=== PATIENT | female | born 1940 | race Caucasian/White ===

== ENCOUNTER 2021-04-09 19:12 | Inpatient (IN) | payer MEDICARE, OTHER ==
[~2021-04-09] VITALS: Ht 172.7 cm; Wt 70.3 kg
--- NOTE | 2021-04-09 19:30 | NUR ---
[facility] AT BEDSIDE. BLOOD DRAWN AND SENT TO LAB
--- NOTE | 2021-04-09 19:33 | NUR ---
KENNEDY FROM [facility], SENT BY PMD FOR PSYCH EVAL DUE TO BEING UNCOOPERATIVE WITH STAFF. PT CHANGED INTO A GOWN AND PLACED ON MONITOR AND ALL V/S STABLE. SAFETY MEASURES IN PLACE.
--- NOTE | 2021-04-09 20:03 | NUR ---
urine collected and sent to lab
[2021-04-09] MEDS ORDERED: LEVO25TA9 PO (20:24)
[2021-04-09] MEDS ORDERED: DORZ10DR13 EACHEYE (20:24)
[2021-04-09] MEDS ORDERED: INSU100V7 SQ (20:24)
[2021-04-09] MEDS ORDERED: MELA3TAB41 PO (20:24)
[2021-04-09] MEDS ORDERED: LATA2.5D2 EACHEYE (20:24)
[2021-04-09] MEDS ORDERED: QUET25TA PO ×2 (20:24)
[2021-04-09] MEDS ORDERED: DEXT15DR6 EACHEYE (20:24)
[2021-04-09 20:30] LABS: BASOPHILS # (AUTO) 0.1 K/uL (0.0-0.2); CALCIUM, SERUM 9.2 mg/dL (8.5-10.1); CARBON DIOXIDE 27 mmol/L (21-32); CHLORIDE 102 mmol/L (98-107); CREATININE 0.8 mg/dL (0.6-1.3); EOSINOPHILS % (AUTO) 2.5 % (0.0-6.0); GLUCOSE 237 mg/dL (74-106); HEMATOCRIT 38 % (33-45); HEMOGLOBIN 12.6 g/dL (11.5-14.8); LYMPHOCYTES # (AUTO) 1.7 K/uL (0.8-4.8); LYMPHOCYTES % (AUTO) 27.8 % (20.0-44.0); MEAN CORPUSCULAR HGB CONC 33 g/dl (31.0-36.0); MEAN CORPUSCULAR VOLUME 93 fL (82-100); MONOCYTES # (AUTO) 0.5 K/uL (0.1-1.30); NEUTROPHILS # (AUTO) 3.7 K/uL (1.8-8.9); NEUTROPHILS % (AUTO) 60.7 % (43.0-81.0); PLATELET COUNT (AUTO) 189 K/uL (150-450); POTASSIUM 3.9 mmol/L (3.5-5.1); RED BLOOD CELL COUNT(AUTO) 4.08 MIL/uL (4.0-5.2); SODIUM SERUM 136 mmol/L (136-145); UREA NITROGEN, BLOOD 29 mg/dL (7-18); WHITE BLOOD COUNT (AUTO) 6.1 K/uL (4.3-11.0)
--- NOTE | 2021-04-09 20:30 | NUR ---
COVID ANTIGEN SWAB DONE
[2021-04-09 20:31] LABS: BILIRUBIN,URINE NEGATIVE (NEGATIVE); COLOR,URINE YELLOW (YELLOW); LEUKOCYTE ESTERASE ,URINE SMALL (NEGATIVE); NITRITE, URINE POSITIVE (NEGATIVE); PROTEIN,URINE NEGATIVE (NEGATIVE); UGLUCOSE NEGATIVE (NEGATIVE); UROBILINOGEN,URINE 0.2 EU/dL (0.2)
[2021-04-09 20:36] LABS: BACTERIA,URINE 2+ /HPF (None Seen); RBC,URINE 0-2 /HPF (0-2)
[2021-04-09] MEDS ORDERED: CEFTRIAXONE 1GM BAG (ER ONLY) 1 GM/50 ML PIGGYBACK IV ONE (21:00)
[2021-04-09] MEDS ORDERED: CEPHALEXIN MONOHYDRATE 500 MG CAPSULE PO ONE ×2 (21:21→21:30)
[2021-04-09 21:29] LABS: ALANINE AMINOTRANSFERASE 24 U/L (12-78); ALBUMIN 3.2 g/dL (3.4-5.0); ALKALINE PHOSPHATASE 115 U/L (46-116); ASPARTATE AMINOTRANSFERASE 27 U/L (15-37); BILIRUBIN,TOTAL 0.2 mg/dL (0.2-1.0); TOTAL PROTEIN, SERUM 6.3 g/dL (6.4-8.2)
--- NOTE | 2021-04-09 21:29 | NUR ---
PT REFUSED TO TAKE THE KEFLEX CAPS. DR. PAEZ MADE AWARE
[2021-04-09 21:48] LABS: ACETAMINOPHEN < 0 ug/ml (10-30)
[2021-04-09 21:53] LABS: ALCOHOL, BLOOD < 3 mg/dL (0-0)
[2021-04-09] MEDS ORDERED: LORAZEPAM INJ 2 MG/ML VIAL ONE (22:59)
[2021-04-09] MEDS ORDERED: LORAZEPAM INJ 2 MG/ML VIAL IV ONE (23:00)
--- NOTE | 2021-04-09 23:11 | NUR ---
CALLED [facility] FOR PSYCH EVAL
--- NOTE | 2021-04-10 | NUR ---
MRSA SWAB COLLECTED AND SENT TO LAB. PATIENT'S BELONGINGS LIST DONE.
--- NOTE | 2021-04-10 00:04 | NUR ---
HERIBERTO BULLOCK AT BED SIDE TO EVALUATE THE PT
--- NOTE | 2021-04-10 00:04 | NUR ---
RM 219-B
[2021-04-10] MEDS ORDERED: QUETIAPINE FUMARATE 25 MG TABLET PO ONE (00:30)
[2021-04-10] MEDS ORDERED: QUETIAPINE FUMARATE 25 MG TABLET PO SCH (00:30)
[2021-04-10] MEDS ORDERED: QUETIAPINE FUMARATE 25 MG TABLET ONE (00:59)
[2021-04-10] MEDS ORDERED: DEXTROSE 50%-WATER 50 ML DISP.SYRIN IV PRN (01:00)
--- NOTE | 2021-04-10 01:12 | NUR ---
REPORT GIVEN TO GRETA LOZANO
--- NOTE | 2021-04-10 01:15 | NUR ---
PATIENT BEING TRANSFERRED TO [facility]
[2021-04-10] MEDS ORDERED: MAG HYDROX/AL HYDROX/SIMETH 30 ML UDC PO PRN (01:30)
[2021-04-10] MEDS ORDERED: BLOOD SUGAR DIAGNOSTIC 1 EACH STRIP IN ONE (01:30)
[2021-04-10] MEDS ORDERED: MAGNESIUM HYDROXIDE 30 ML UDC PO PRN ×2 (01:30→11:30)
--- NOTE | 2021-04-10 02:48 | NUR ---
RN GPS ADMISSION NOTE: RECEIVED PATIENT FROM THE ER. ARRIVAL TIME 0130. PATIENT ADMITTED ON A 5150 HOLD FOR DANGER TO OTHERS, GRAVELY DISABLED PER HOLD, PATIENT IS CONFUSED, FORGETTING WHERE SHE IS, BECOMING AGGRESSIVE TOWARDS STAFF AND NOT FOLLOWING DIRECTIONS. UNABLE TO CARE FOR OWN CLOTHING AND FEEDING. PATIENT CAME [facility]. ON ARRIVAL TO THE UNIT, PATIENT SEEMS CONFUSED AND SPEAKS ONLY OCCITAN, WHICH A RUBBER TUBING SPLICER WAS USED. PATIENT PATIENT'S RESPIRATIONS APPEARED EVEN AND UNLABORED WITH NO SOB NOTED. PATIENT SEEMS TO BE ALERT ORIENTED X1-2. PATIENT CURRENTLY DENIES ANY SUICIDAL IDEATION AND HOMICIDAL IDEATION AT THIS TIME. PATIENT ADVISED OF HOLD AND PATIENT'S RIGHT BOOKLET WAS GIVEN. PATIENTS BELONGINGS CHECKED FOR CONTRABAND, WHICH PATIENT HAS NONE. SKIN ASSESSMENT COMPLETED, SHOWING SCABS ON CHEST, BACK AND LEGS, WHICH PHOTOS WERE TAKEN OF. PATIENT SEEMS TO BE AMBULATORY SINCE SHE WAS JUST SEEN GETTING OUT OF THE GURNEY THEN USING THE RESTROOM. PATIENT REFUSED TO SIGN ANY PAPER WORK. BUT ALLOWED STAFF TO DO VITAL SIGNS CHECKS, BLOOD SUGAR (WHICH WAS 248) AND FACE OF PHOTO WELL SKIN ASSESSMENT. PATIENT IS SELECTIVELY MUTE, SHOWING NON-VERBAL BEHAVIOR. RECORDS ONLY SHOW SHE HAS A HISTORY OF DEMENTIA, HYPOTHYROIDISM, METABOLIC ENCEPHALOPATHY. IT WAS NOTED THAT PATIENT ALSO HAS A FORM OF HYPERTENSION AND DIABETES. IT IS ALSO UNKNOWN IF SHE TOOK THE COVID, FLU, OR PNA VACCINE. MSRA SWAB DONE. AFTERWARDS, PATIENT EDUCATED FILM TECHNICIAN LIGHT. SIDE RAILS UP X2 FOR SAFETY. BED LOCKED, LOW, WILL CONTINUE TO MONITOR Q15 MINUTES FOR SAFETY.
[2021-04-10] MEDS: LEVOTHYROXINE SODIUM 25 MCG TABLET PO SCH ×2 (07:00→08:25)
[2021-04-10] MEDS ORDERED: BISA10SU11 RC (07:27)
[2021-04-10] MEDS ORDERED: INSU100V30 SQ (07:27)
[2021-04-10] MEDS ORDERED: NA P133E RC (07:27)
[2021-04-10] MEDS ORDERED: MAGN400O6 PO (07:27)
[2021-04-10] MEDS ORDERED: ACET-868 PO (07:27)
[2021-04-10] MEDS ORDERED: POLY15DR40 EACHEYE (07:27)
[2021-04-10] MEDS ORDERED: SENN-261 PO (07:27)
[2021-04-10 08:00] VITALS: BP 158/82
[2021-04-10] MEDS: INSULIN REGULAR, HUMAN 100 UNIT/ML 3 ML VIAL SQ PRN ×2 (08:01→11:28)
--- NOTE | 2021-04-10 08:05 | NUR ---
PATIENT'S BLOOD SUGAR 251. PT REFUSES INSULIN. WILL CONTINUE TO MONITOR.
[2021-04-10] MEDS: CLONIDINE HCL 0.1 MG TABLET PO PRN ×2 (08:07→08:26)
[2021-04-10] MEDS: BLOOD SUGAR DIAGNOSTIC 1 EACH STRIP VI SCH ×4 (08:08→22:07)
[2021-04-10] MEDS: POLYVINYL ALCOHOL 15 ML BOTTLE OP SCH ×3 (09:00→16:50)
[2021-04-10] MEDS: LATANOPROST EYE DROP 0.005% 2.5 ML BOTTLE EACHEYE SCH (09:00)
[2021-04-10] MEDS: risperiDONE 0.25 MG TABLET PO SCH ×2 (10:46→16:49)
--- NOTE | 2021-04-10 10:49 | NUR ---
SHON Initial Discharge Plan: Pt currently resides at [facility] located at [id number] [place] [id number]; ([phone]). SHON contacted Courtney ([phone]) technical illustrator and he stated he will let this director underwriter sales know if pt is welcomed back. SHON will work with the MD, treatment team, and family to help coordinate appropriate discharge.
--- NOTE | 2021-04-10 10:49 | NUR ---
SHON Admit Source: Pt was placed on a 5150 hold for GD and danger to others. Pt was brought from [facility]. Pt currently resides at [facility] located at [address] [place] [id number]; ([phone]). SHON contacted Juan ([phone]) extras casting director and he stated he will let this technical document writer know if pt is welcomed back.
--- NOTE | 2021-04-10 10:54 | NUR ---
SHON Family Contact: SW contacted patient's daughter Nhung ([phone]) and notified of pt's admission. SW discussed treatment plan and discharge plan. Daughter wants pt to return back to [facility] SNF upon dc.
[2021-04-10] MEDS ORDERED: SENNOSIDES 8.6 MG TABLET PO PRN (11:30)
[2021-04-10] MEDS ORDERED: BISACODYL SUPP (10 MG) 10 MG/SUPP.RECT SUPP.RECT RC PRN (11:30)
[2021-04-10] MEDS ORDERED: NA PHOS,M-B/NA PHOS,DI-BA 1 EA ENEMA RC PRN (11:30)
[2021-04-10] MEDS: DIVALPROEX SODIUM 125 MG CAP.SPRINK PO SCH ×2 (12:23→16:49)
[2021-04-10] MEDS ORDERED: POLYVINYL ALCOHOL 15 ML BOTTLE OP SCH (13:00)
[2021-04-10 16:00] VITALS: BP 153/91
[2021-04-10] MEDS: LORAZEPAM 0.5 MG TABLET PO PRN (19:43)
--- NOTE | 2021-04-10 20:27 | NUR ---
GPS RN NOTES PRN ATIVAN GIVEN FOR ANXIETY PT TOLERATED WELL. WILL CONTINUE TO MONITOR.
[2021-04-10] MEDS: ACETAMINOPHEN 325 MG TABLET PO PRN (21:52)
[2021-04-10] MEDS: TEMAZEPAM 7.5 MG CAPSULE PO PRN (21:53)
[2021-04-10] MEDS: NITROFURANTOIN/MONOHYDRATE MACROCRYSTALS 100 MG CAPSULE PO SCH (21:53)
[2021-04-10] MEDS: TIMOLOL MAL/DORZOLAM HCL OPHTH 10 ML BOTTLE EACHEYE SCH (22:00)
[2021-04-10] MEDS: *INSULIN REGULAR(HUMULIN R)HUM 100 UNIT/ML VIAL SQ PRN (22:06)
--- NOTE | 2021-04-10 22:07 | NUR ---
GPS RN NOTES PT GIVEN RESTORIL FOR INSOMIA AND TYLENOL DUE TO PT REPORT OF MILD PAIN TOLERATED WELL. WILL CONTINUE TO MONITOR.
[2021-04-10] MEDS: INSULIN GLARGINE, 100 UNIT/ML CARTRIDGE SQ SCH (22:23)
--- NOTE | 2021-04-10 22:24 | NUR ---
GPS RN NOTES LANTUS GIVEN SNACKS AND JUICE PROVIDED PT REQUESTED TOLERATED WELL. PT APPEARS LESS ANXIOUS AT THIS TIME.
[2021-04-11] MEDS: BLOOD SUGAR DIAGNOSTIC 1 EACH STRIP VI SCH ×4 (07:45→21:28)
[2021-04-11] MEDS: INSULIN REGULAR, HUMAN 100 UNIT/ML 3 ML VIAL SQ PRN ×2 (07:47→11:46)
[2021-04-11 08:00] VITALS: BP 139/86
--- NOTE | 2021-04-11 08:37 | NUR ---
SNF Contact: SW spoke with Juan benz from [facility] ([phone]) who stated pt is welcomed back upon dc.
--- NOTE | 2021-04-11 08:52 | NUR ---
WOUND CARE CONSULT: PT PRESENTS WITH SOME SCARRING AND DRY SCABS, PRESENT ON ADMISSION. NO DRAINAGE, ERYTHEMA NOTED. PT WAS EXAMINED BY HOSPITALIST. WILL SEE PRN. PT IS AMBULATORY.
[2021-04-11] MEDS: DIVALPROEX SODIUM 125 MG CAP.SPRINK PO SCH ×3 (09:07→17:23)
[2021-04-11] MEDS: AMLODIPINE BESYLATE 2.5 MG TABLET PO SCH (09:07)
[2021-04-11] MEDS: risperiDONE 0.25 MG TABLET PO SCH ×2 (09:07→17:23)
[2021-04-11] MEDS: NITROFURANTOIN/MONOHYDRATE MACROCRYSTALS 100 MG CAPSULE PO SCH ×2 (09:07→21:17)
[2021-04-11] MEDS: LATANOPROST EYE DROP 0.005% 2.5 ML BOTTLE EACHEYE SCH (09:28)
[2021-04-11] MEDS: POLYVINYL ALCOHOL 15 ML BOTTLE OP SCH ×3 (09:28→17:49)
[2021-04-11 09:57] LABS: CHOLESTEROL 198 mg/dL (<200); HDL CHOLESTEROL 61 mg/dL (40-60); LDL 113 mg/dL (0-99); TRIGLYCERIDES 81 mg/dL (30-150)
[2021-04-11 10:10] LABS: ALBUMIN 2.9 g/dL (3.4-5.0); BILIRUBIN,TOTAL 0.5 mg/dL (0.2-1.0); CREATININE 0.9 mg/dL (0.6-1.3); POTASSIUM 3.8 mmol/L (3.5-5.1); TOTAL PROTEIN, SERUM 6.2 g/dL (6.4-8.2)
[2021-04-11] MEDS: HYDROCORTISONE 1% CREAM 28.35 GM TUBE TP SCH ×2 (10:43→17:49)
[2021-04-11 16:00] VITALS: BP 135/66
[2021-04-11 20:00] VITALS: BP 138/70
[2021-04-11] MEDS: TIMOLOL MAL/DORZOLAM HCL OPHTH 10 ML BOTTLE EACHEYE SCH ×2 (21:19→21:55)
[2021-04-11] MEDS: INSULIN GLARGINE, 100 UNIT/ML CARTRIDGE SQ SCH ×2 (21:27→21:46)
[2021-04-11] MEDS: *INSULIN REGULAR(HUMULIN R)HUM 100 UNIT/ML VIAL SQ PRN (21:28)
--- NOTE | 2021-04-11 21:55 | NUR ---
GPS RN NOTES PT REFUSED HER EYE DROPS AND INSULIN. EXPLAINED TO PT IMPORTANCE OF MEDICATIONS IN HER POC BUT PT STILL REFUSED. WILL CONTINUE TO MONITOR.
[2021-04-11] MEDS: TEMAZEPAM 7.5 MG CAPSULE PO PRN (22:01)
[2021-04-12] MEDS: BLOOD SUGAR DIAGNOSTIC 1 EACH STRIP VI SCH ×4 (07:44→21:53)
[2021-04-12 08:00] VITALS: BP 157/68
[2021-04-12] MEDS: LEVOTHYROXINE SODIUM 75 MCG TABLET PO SCH (08:25)
[2021-04-12] MEDS: NITROFURANTOIN/MONOHYDRATE MACROCRYSTALS 100 MG CAPSULE PO SCH ×2 (08:28→20:31)
[2021-04-12] MEDS: DIVALPROEX SODIUM 125 MG CAP.SPRINK PO SCH ×3 (08:28→16:30)
[2021-04-12] MEDS: risperiDONE 0.25 MG TABLET PO SCH ×2 (08:28→16:30)
[2021-04-12] MEDS: AMLODIPINE BESYLATE 2.5 MG TABLET PO SCH (08:29)
[2021-04-12] MEDS: HYDROCORTISONE 1% CREAM 28.35 GM TUBE TP SCH ×2 (08:30→16:32)
[2021-04-12] MEDS: INSULIN REGULAR, HUMAN 100 UNIT/ML 3 ML VIAL SQ PRN ×3 (08:38→17:07)
[2021-04-12] MEDS: LATANOPROST EYE DROP 0.005% 2.5 ML BOTTLE EACHEYE SCH (09:17)
[2021-04-12] MEDS: POLYVINYL ALCOHOL 15 ML BOTTLE OP SCH ×3 (09:18→16:32)
[2021-04-12 16:00] VITALS: BP 151/80
[2021-04-12 19:54] VITALS: BP 145/75
[2021-04-12 20:00] VITALS: BP 145/75
[2021-04-12] MEDS: TIMOLOL MAL/DORZOLAM HCL OPHTH 10 ML BOTTLE EACHEYE SCH (21:15)
[2021-04-12] MEDS: *INSULIN REGULAR(HUMULIN R)HUM 100 UNIT/ML VIAL SQ PRN (21:54)
[2021-04-12] MEDS: INSULIN GLARGINE, 100 UNIT/ML CARTRIDGE SQ SCH (22:00)
[2021-04-12] MEDS: TEMAZEPAM 7.5 MG CAPSULE PO PRN (22:02)
--- NOTE | 2021-04-12 22:04 | NUR ---
GPS RN NOTE PATIENT'S GLUCOSE LEVEL IS 198 MG/DL, 3 UNITS SSI ADMINISTERED. PATIENT IS EATING SNACK AT THIS TIME. WILL CONTINUE TO MONITOR FOR ANY CHANGE OF CONDITION.
--- NOTE | 2021-04-12 22:04 | NUR ---
GPS RN NOTE: INSOMNIA PATIENT IS UNABLE TO SLEEP, ANXIOUS, RESTLESS AT THIS TIME. PRN RESTORIL 7.5 MG 1 CAP PO ADMINISTERED. WILL CONTINUE TO MONITOR.
--- NOTE | 2021-04-12 22:11 | NUR ---
GPS RN NOTE: MEDICATION REFUSAL PATIENT REFUSED TO GET LANTUS INSULIN ORDERED X 3, DESPITE OF RISKS AND BENEFITS EXPLANATIONS, PATIENT CONTINUED TO REFUSE.
[2021-04-13] MEDS: LORAZEPAM 0.5 MG TABLET PO PRN (00:52)
--- NOTE | 2021-04-13 00:55 | NUR ---
GPS RN NOTE: ANXIETY/AGITATION PATIENT IS ANXIOUS, RESTLESS, GETTING AGITATED WHEN REDIRECTED, UNABLE TO REDIRECT AT THIS TIME. PRN ATIVAN 0.5 MG 1 TAB PO ADMINISTERED. WILL CONTINUE TO MONITOR.
[2021-04-13] MEDS: ACETAMINOPHEN 325 MG TABLET PO PRN ×2 (05:20→22:13)
--- NOTE | 2021-04-13 05:23 | NUR ---
GPS RN NOTE: HEADACHE PATIENT C/O HEADACHE BUT UNABLE TO SCALE DUE TO CONFUSION. PRN TYLENOL 650 MG PO ADMINISTERED. WILL CONTINUE TO MONITOR.
[2021-04-13] MEDS: LEVOTHYROXINE SODIUM 75 MCG TABLET PO SCH (07:03)
[2021-04-13] MEDS: BLOOD SUGAR DIAGNOSTIC 1 EACH STRIP VI SCH ×4 (07:49→21:15)
[2021-04-13 08:00] VITALS: BP 153/69
[2021-04-13] MEDS: INSULIN REGULAR, HUMAN 100 UNIT/ML 3 ML VIAL SQ PRN ×3 (08:15→17:23)
[2021-04-13] MEDS: risperiDONE 0.25 MG TABLET PO SCH ×2 (08:16→16:36)
[2021-04-13] MEDS: AMLODIPINE BESYLATE 2.5 MG TABLET PO SCH (08:16)
[2021-04-13] MEDS: DIVALPROEX SODIUM 125 MG CAP.SPRINK PO SCH ×3 (08:16→16:36)
[2021-04-13] MEDS: NITROFURANTOIN/MONOHYDRATE MACROCRYSTALS 100 MG CAPSULE PO SCH ×2 (08:16→21:09)
[2021-04-13] MEDS: HYDROCORTISONE 1% CREAM 28.35 GM TUBE TP SCH ×2 (08:16→16:39)
[2021-04-13] MEDS: LATANOPROST EYE DROP 0.005% 2.5 ML BOTTLE EACHEYE SCH (08:17)
[2021-04-13] MEDS: POLYVINYL ALCOHOL 15 ML BOTTLE OP SCH ×3 (08:17→16:39)
[2021-04-13 16:00] VITALS: BP 120/72
[2021-04-13 19:58] VITALS: BP 162/81
[2021-04-13 20:08] VITALS: BP 162/81
[2021-04-13] MEDS: TIMOLOL MAL/DORZOLAM HCL OPHTH 10 ML BOTTLE EACHEYE SCH (21:10)
[2021-04-13 21:15] VITALS: BP 145/80
[2021-04-13] MEDS: *INSULIN REGULAR(HUMULIN R)HUM 100 UNIT/ML VIAL SQ PRN (21:16)
[2021-04-13] MEDS: INSULIN GLARGINE, 100 UNIT/ML CARTRIDGE SQ SCH (21:28)
[2021-04-13] MEDS: TEMAZEPAM 7.5 MG CAPSULE PO PRN (22:07)
--- NOTE | 2021-04-14 06:15 | NUR ---
GPS RN NOTE: PATIENT REFUSED AM LABS TODAY.
[2021-04-14] MEDS: LEVOTHYROXINE SODIUM 75 MCG TABLET PO SCH (07:04)
[2021-04-14 08:00] VITALS: BP 143/72
[2021-04-14] MEDS: BLOOD SUGAR DIAGNOSTIC 1 EACH STRIP VI SCH ×4 (08:59→21:59)
[2021-04-14] MEDS: POLYVINYL ALCOHOL 15 ML BOTTLE OP SCH ×3 (09:00→17:32)
[2021-04-14] MEDS: LATANOPROST EYE DROP 0.005% 2.5 ML BOTTLE EACHEYE SCH (09:00)
[2021-04-14] MEDS: HYDROCORTISONE 1% CREAM 28.35 GM TUBE TP SCH ×2 (09:01→17:34)
[2021-04-14] MEDS: risperiDONE 0.25 MG TABLET PO SCH ×2 (09:03→17:33)
[2021-04-14] MEDS: DIVALPROEX SODIUM 125 MG CAP.SPRINK PO SCH ×4 (09:03→17:33)
[2021-04-14] MEDS: AMLODIPINE BESYLATE 2.5 MG TABLET PO SCH (09:03)
[2021-04-14] MEDS: NITROFURANTOIN/MONOHYDRATE MACROCRYSTALS 100 MG CAPSULE PO SCH ×2 (09:03→20:57)
[2021-04-14] MEDS: INSULIN REGULAR, HUMAN 100 UNIT/ML 3 ML VIAL SQ PRN ×3 (09:07→17:37)
[2021-04-14 13:02] LABS: BASOPHILS # (AUTO) 0.1 K/uL (0.0-0.2); BASOPHILS % (AUTO) 1.2 % (0.0-2.0); EOSINOPHILS % (AUTO) 2.1 % (0.0-6.0); HEMATOCRIT 41 % (33-45); HEMOGLOBIN 13.7 g/dL (11.5-14.8); LYMPHOCYTES % (AUTO) 18.7 % (20.0-44.0); MEAN CORPUSCULAR HGB CONC 34 g/dl (31.0-36.0); MEAN CORPUSCULAR VOLUME 92 fL (82-100); MONOCYTES # (AUTO) 0.4 K/uL (0.1-1.30); NEUTROPHILS # (AUTO) 3.7 K/uL (1.8-8.9); PLATELET COUNT (AUTO) 202 K/uL (150-450); RED BLOOD CELL COUNT(AUTO) 4.43 MIL/uL (4.0-5.2); WHITE BLOOD COUNT (AUTO) 5.2 K/uL (4.3-11.0)
[2021-04-14 13:14] LABS: BILIRUBIN,TOTAL 0.4 mg/dL (0.2-1.0); CALCIUM, SERUM 8.8 mg/dL (8.5-10.1); CREATININE 1.1 mg/dL (0.6-1.3); POTASSIUM 3.7 mmol/L (3.5-5.1); TOTAL PROTEIN, SERUM 6.2 g/dL (6.4-8.2)
[2021-04-14] MEDS: ACETAMINOPHEN 325 MG TABLET PO PRN ×2 (15:00→21:24)
[2021-04-14 16:00] VITALS: BP 118/59
[2021-04-14 19:55] VITALS: BP 148/75
--- NOTE | 2021-04-14 21:25 | NUR ---
GPS RN NOTE: HEADACHE PATIENT C/O HEADACHE BUT UNABLE TO SCALE DUE TO CONFUSION. PRN TYLENOL 650 MG PO ADMINISTERED. WILL CONTINUE TO MONITOR.
[2021-04-14] MEDS: INSULIN GLARGINE, 100 UNIT/ML CARTRIDGE SQ SCH (22:00)
[2021-04-14] MEDS: TIMOLOL MAL/DORZOLAM HCL OPHTH 10 ML BOTTLE EACHEYE SCH (22:00)
--- NOTE | 2021-04-14 22:00 | NUR ---
GPS RN NOTE: MEDICATION REFUSAL PATIENT REFUSED COSOPT EYE DROPS X 3 DESPITE OF RISKS AND BENEFITS EXPLANATIONS.
--- NOTE | 2021-04-14 22:02 | NUR ---
GPS RN NOTE: HELD LANTUS PATIENT'S BLOOD GLUCOSE LEVEL IS 56 MG/DL AT THIS TIME. OFFERED ORANGE JUICE AND TOLERATED WELL. PATIENT REFUSED ANOTHER SNACK AT THIS TIME. WILL RECHECK BLOOD GLUCOSE. PATIENT IS AWAKE, BASELINE BEHAVIOR, TALKATIVE, ABLE TO FOLLOW DIRECTIONS, NO CHANGE OF CONDITION OR OTHER SYMPTOMS NOTED AT THIS TIME. WILL CONTINUE TO MONITOR THE PATIENT CLOSELY.
--- NOTE | 2021-04-14 22:28 | NUR ---
GPS RN NOTE: LOW BLOOD GLUCOSE LEVEL PATIENT HAD BLOOD GLUCOSE LEVEL 56 MG/DL, ORANGE JUICE GIVEN, TOLERATED WELL, TRACEY REESE NOTIFIED WITH NEW ORDER TO HOLD LANTUS TONIGHT, MONITOR THE PATIENT FOR CLOSELY FOR ANY CHANGE OF CONDITION. RECHECKED PATIENT'S BLOOD GLUCOSE LEVEL AND IT IS 91 MG/DL AT THIS TIME. WILL CONTINUE TO MONITOR THE PATIENT CLOSELY.
[2021-04-14] MEDS: TEMAZEPAM 7.5 MG CAPSULE PO PRN (22:43)
--- NOTE | 2021-04-14 22:46 | NUR ---
GPS RN NOTE: INSOMNIA PATIENT C/O INABILITY TO SLEEP, DIRECTOR WRITING USED AND PATIENT REQUESTED FOR SLEEPING MEDICINE. PRN RESTORIL 7.5 MG 1 CAP PO ADMINISTERED. WILL CONTINUE TO MONITOR.
[2021-04-15] MEDS: BLOOD SUGAR DIAGNOSTIC 1 EACH STRIP VI SCH ×4 (07:06→22:00)
[2021-04-15 08:00] VITALS: BP 148/73
[2021-04-15] MEDS: LATANOPROST EYE DROP 0.005% 2.5 ML BOTTLE EACHEYE SCH (08:18)
[2021-04-15] MEDS: HYDROCORTISONE 1% CREAM 28.35 GM TUBE TP SCH ×2 (08:18→17:56)
[2021-04-15] MEDS: POLYVINYL ALCOHOL 15 ML BOTTLE OP SCH ×3 (08:18→17:56)
[2021-04-15] MEDS: INSULIN REGULAR, HUMAN 100 UNIT/ML 3 ML VIAL SQ PRN ×3 (08:24→17:58)
[2021-04-15] MEDS: risperiDONE 0.25 MG TABLET PO SCH ×2 (08:26→17:55)
[2021-04-15] MEDS: NITROFURANTOIN/MONOHYDRATE MACROCRYSTALS 100 MG CAPSULE PO SCH ×2 (08:26→21:48)
[2021-04-15] MEDS: DIVALPROEX SODIUM 125 MG CAP.SPRINK PO SCH ×3 (08:26→17:55)
[2021-04-15] MEDS: LEVOTHYROXINE SODIUM 75 MCG TABLET PO SCH (08:26)
[2021-04-15] MEDS: AMLODIPINE BESYLATE 2.5 MG TABLET PO SCH (08:27)
[2021-04-15] MEDS: LORAZEPAM 0.5 MG TABLET PO PRN (12:56)
[2021-04-15 16:00] VITALS: BP 138/67
[2021-04-15 20:24] VITALS: BP 155/84
[2021-04-15] MEDS: TIMOLOL MAL/DORZOLAM HCL OPHTH 10 ML BOTTLE EACHEYE SCH (22:00)
[2021-04-15] MEDS: INSULIN GLARGINE, 100 UNIT/ML CARTRIDGE SQ SCH (22:00)
--- NOTE | 2021-04-15 23:02 | NUR ---
GPS RN NOTES: PATIENT REFUSED 2200 TIMOLOL 1 DROP EACH EYE, LANTUS 24U, ACCU CHEK AND WEEKLY SKIN ASSESSMENT. LUXEMBOURGISH SPEAKING STAFF CALLED TO INTERPRET AND EDUCATE PATIENT ON THE IMPORTANCE OF TREATMENT COMPLIANCE BUT PATIENT STILL REFUSED. WILL CONTINUE TO MONITOR.
[2021-04-16] MEDS: LEVOTHYROXINE SODIUM 75 MCG TABLET PO SCH (07:07)
[2021-04-16] MEDS: BLOOD SUGAR DIAGNOSTIC 1 EACH STRIP VI SCH ×4 (07:42→21:25)
[2021-04-16] MEDS: INSULIN REGULAR, HUMAN 100 UNIT/ML 3 ML VIAL SQ PRN ×3 (07:55→17:08)
[2021-04-16 08:00] VITALS: BP 153/83
[2021-04-16] MEDS: DIVALPROEX SODIUM 125 MG CAP.SPRINK PO SCH ×3 (08:06→17:05)
[2021-04-16] MEDS: NITROFURANTOIN/MONOHYDRATE MACROCRYSTALS 100 MG CAPSULE PO SCH ×2 (08:06→21:17)
[2021-04-16] MEDS: AMLODIPINE BESYLATE 2.5 MG TABLET PO SCH (08:06)
[2021-04-16] MEDS: risperiDONE 0.25 MG TABLET PO SCH ×2 (08:06→17:05)
[2021-04-16] MEDS: POLYVINYL ALCOHOL 15 ML BOTTLE OP SCH ×3 (08:09→17:05)
[2021-04-16] MEDS: LATANOPROST EYE DROP 0.005% 2.5 ML BOTTLE EACHEYE SCH (08:09)
[2021-04-16] MEDS: HYDROCORTISONE 1% CREAM 28.35 GM TUBE TP SCH ×2 (08:10→17:05)
--- NOTE | 2021-04-16 12:40 | NUR ---
SNF Referral: Per pt's daughters request, SHON sent clinicals to [facility] directly to [facility] ([phone]) for placement option. SHON sent H & P, progress notes, and medication list.
--- NOTE | 2021-04-16 12:40 | NUR ---
SW Family Contact: SW received a call from pt's daughter Nhung ([phone]) who requested for this SW to send clinicals to [facility].
--- NOTE | 2021-04-16 14:19 | NUR ---
SNF Contact: SW spoke with [facility] directly to [facility] ([phone]) who stated that pt does not have any medicare days left and they cannot accept.
--- NOTE | 2021-04-16 14:20 | NUR ---
SHON Family Contact: SW contacted pt's daughter Nhung ([phone]) and stated that pt does not have any medicare days for SNF, she was understanding.
[2021-04-16 16:00] VITALS: BP 153/73
[2021-04-16 20:00] VITALS: BP 151/83
[2021-04-16] MEDS: TIMOLOL MAL/DORZOLAM HCL OPHTH 10 ML BOTTLE EACHEYE SCH (21:25)
[2021-04-16] MEDS: ACETAMINOPHEN 325 MG TABLET PO PRN (21:37)
--- NOTE | 2021-04-16 21:38 | NUR ---
GPS RN NOTE: BACK PAIN PATIENT C/O BACK PAIN, UNABLE TO SCALE DUE TO CONFUSION, PRN TYLENOL 650 MG PO ADMINISTERED. WILL CONTINUE TO MONITOR.
[2021-04-16] MEDS: *INSULIN REGULAR(HUMULIN R)HUM 100 UNIT/ML VIAL SQ PRN (21:40)
[2021-04-16] MEDS: INSULIN GLARGINE, 100 UNIT/ML CARTRIDGE SQ SCH (22:00)
--- NOTE | 2021-04-16 22:08 | NUR ---
GPS RN NOTE: MEDICATION REFUSAL PATIENT REFUSED LANTUS INSULIN ORDERED X 3, DESPITE OF RISKS AND BENEFITS EXPLANATIONS, PATIENT CONTINUED TO REFUSE AND WANTED TO SLEEP.
[2021-04-17] MEDS: TEMAZEPAM 7.5 MG CAPSULE PO PRN ×2 (01:31→21:55)
--- NOTE | 2021-04-17 01:34 | NUR ---
GPS RN NOTE: INSOMNIA PATIENT IS UNABLE TO SLEEP, RESTLESS, CRYING. PRN RESTORIL 7.5 MG 1 CAP PO ADMINISTERED. WILL CONTINUE TO MONITOR.
[2021-04-17] MEDS: LEVOTHYROXINE SODIUM 75 MCG TABLET PO SCH (06:33)
[2021-04-17] MEDS: BLOOD SUGAR DIAGNOSTIC 1 EACH STRIP VI SCH ×4 (07:34→21:41)
[2021-04-17] MEDS: INSULIN REGULAR, HUMAN 100 UNIT/ML 3 ML VIAL SQ PRN ×2 (07:53→11:59)
[2021-04-17 08:00] VITALS: BP 162/80
[2021-04-17] MEDS: HYDROCORTISONE 1% CREAM 28.35 GM TUBE TP SCH ×2 (08:55→16:54)
[2021-04-17] MEDS: NITROFURANTOIN/MONOHYDRATE MACROCRYSTALS 100 MG CAPSULE PO SCH (08:58)
[2021-04-17] MEDS: risperiDONE 0.25 MG TABLET PO SCH ×2 (08:58→16:56)
[2021-04-17] MEDS: DIVALPROEX SODIUM 125 MG CAP.SPRINK PO SCH ×3 (08:58→16:57)
[2021-04-17] MEDS: POLYVINYL ALCOHOL 15 ML BOTTLE OP SCH ×3 (08:59→16:54)
[2021-04-17] MEDS: LATANOPROST EYE DROP 0.005% 2.5 ML BOTTLE EACHEYE SCH (08:59)
[2021-04-17] MEDS: AMLODIPINE BESYLATE 2.5 MG TABLET PO SCH (08:59)
[2021-04-17] MEDS: ACETAMINOPHEN 325 MG TABLET PO PRN ×2 (10:47→21:34)
--- NOTE | 2021-04-17 10:48 | NUR ---
TYLENOL 65OMG GIVEN FOR HEADACHE @ 1048. WILL CONTINUE TO MONITOR.
--- NOTE | 2021-04-17 13:35 | NUR ---
Court Hearing: Patient's court hearing for [id number] was today and it was upheld for GD.
[2021-04-17] MEDS: GLUCERNA SHAKE 237 ML CAN PO SCH ×2 (14:16→16:54)
[2021-04-17 16:00] VITALS: BP 143/79
[2021-04-17 20:00] VITALS: BP 156/80
--- NOTE | 2021-04-17 21:36 | NUR ---
GPS RN NOTE: HEADACHE PATIENT C/O RIGHT ARM PAIN BUT UNABLE TO SCALE DUE TO CONFUSION. PRN TYLENOL 650 MG PO ADMINISTERED. WILL CONTINUE TO MONITOR.
--- NOTE | 2021-04-17 21:56 | NUR ---
GPS RN NOTE: INSOMNIA PATIENT IS UNABLE TO SLEEP, RESTLESS. PRN RESTORIL 7.5 MG 1 CAP PO ADMINISTERED. WILL CONTINUE TO MONITOR.
[2021-04-17] MEDS: TIMOLOL MAL/DORZOLAM HCL OPHTH 10 ML BOTTLE EACHEYE SCH (21:58)
--- NOTE | 2021-04-17 21:59 | NUR ---
GPS RN NOTE: MEDICATION REFUSAL PATIENT REFUSED COSOPT EYE DROPS X 3 DESPITE OF RISKS AND BENEFITS EXPLANATIONS.
[2021-04-17] MEDS: INSULIN GLARGINE, 100 UNIT/ML CARTRIDGE SQ SCH (22:00)
[2021-04-17] MEDS: *INSULIN REGULAR(HUMULIN R)HUM 100 UNIT/ML VIAL SQ PRN (22:14)
--- NOTE | 2021-04-17 22:26 | NUR ---
GPS RN NOTE: MEDICATION REFUSAL PATIENT REFUSED LANTUS INSULIN ORDERED X 3, DESPITE OF RISKS AND BENEFITS EXPLANATIONS, PATIENT CONTINUED TO REFUSE.
[2021-04-18] MEDS: LEVOTHYROXINE SODIUM 75 MCG TABLET PO SCH (07:07)
[2021-04-18] MEDS: INSULIN REGULAR, HUMAN 100 UNIT/ML 3 ML VIAL SQ PRN ×2 (07:52→11:27)
[2021-04-18] MEDS: BLOOD SUGAR DIAGNOSTIC 1 EACH STRIP VI SCH ×4 (07:53→21:02)
[2021-04-18 08:00] VITALS: BP 133/70
[2021-04-18] MEDS: POLYVINYL ALCOHOL 15 ML BOTTLE OP SCH ×3 (08:39→16:38)
[2021-04-18] MEDS: LATANOPROST EYE DROP 0.005% 2.5 ML BOTTLE EACHEYE SCH (08:39)
[2021-04-18] MEDS: HYDROCORTISONE 1% CREAM 28.35 GM TUBE TP SCH ×2 (08:40→16:38)
[2021-04-18] MEDS: risperiDONE 0.25 MG TABLET PO SCH ×2 (08:40→16:37)
[2021-04-18] MEDS: DIVALPROEX SODIUM 125 MG CAP.SPRINK PO SCH ×3 (08:40→16:37)
[2021-04-18] MEDS: AMLODIPINE BESYLATE 2.5 MG TABLET PO SCH (08:41)
[2021-04-18] MEDS: GLUCERNA SHAKE 237 ML CAN PO SCH ×2 (09:01→16:37)
[2021-04-18] MEDS: SERTRALINE HCL 25 MG TABLET PO SCH (12:26)
[2021-04-18 16:00] VITALS: BP 145/71
[2021-04-18 20:00] VITALS: BP 121/62
[2021-04-18] MEDS: TIMOLOL MAL/DORZOLAM HCL OPHTH 10 ML BOTTLE EACHEYE SCH (21:02)
[2021-04-18] MEDS: INSULIN GLARGINE, 100 UNIT/ML CARTRIDGE SQ SCH (21:04)
[2021-04-18] MEDS: *INSULIN REGULAR(HUMULIN R)HUM 100 UNIT/ML VIAL SQ PRN (21:05)
[2021-04-19] MEDS: BLOOD SUGAR DIAGNOSTIC 1 EACH STRIP VI SCH ×4 (07:27→21:33)
[2021-04-19] MEDS: INSULIN REGULAR, HUMAN 100 UNIT/ML 3 ML VIAL SQ PRN ×4 (07:54→21:35)
[2021-04-19 08:00] VITALS: BP 140/65
[2021-04-19] MEDS: DIVALPROEX SODIUM 125 MG CAP.SPRINK PO SCH ×3 (08:13→16:24)
[2021-04-19] MEDS: risperiDONE 0.25 MG TABLET PO SCH ×2 (08:13→16:24)
[2021-04-19] MEDS: LEVOTHYROXINE SODIUM 75 MCG TABLET PO SCH (08:13)
[2021-04-19] MEDS: LATANOPROST EYE DROP 0.005% 2.5 ML BOTTLE EACHEYE SCH (08:15)
[2021-04-19] MEDS: POLYVINYL ALCOHOL 15 ML BOTTLE OP SCH ×3 (08:15→16:25)
[2021-04-19] MEDS: AMLODIPINE BESYLATE 2.5 MG TABLET PO SCH (08:20)
[2021-04-19] MEDS: GLUCERNA SHAKE 237 ML CAN PO SCH ×2 (08:26→16:24)
[2021-04-19] MEDS: HYDROCORTISONE 1% CREAM 28.35 GM TUBE TP SCH ×2 (09:48→16:26)
--- NOTE | 2021-04-19 11:22 | NUR ---
SHON Family Contact: SHON contacted pt's daughter Nhung ([phone]) and notified that pt will discharged back to [facility] on 04/23/21, and she was agreeable with this.
[2021-04-19] MEDS: SERTRALINE HCL 25 MG TABLET PO SCH (12:23)
[2021-04-19] MEDS: LORAZEPAM 0.5 MG TABLET PO PRN (12:26)
[2021-04-19 16:00] VITALS: BP 117/67
--- NOTE | 2021-04-19 19:30 | NUR ---
GPS RN NOTE, RECEIVED PATIENT AWAKE AND IN BED, NO S/S OR COMPLAINTS OF PAIN AT THIS TIME. PATIENT IS TAKING MEDICATION FOR THIS DISCOMFORT. PATIENT IS DISPLAYING NO S/S OF APPARENT DISTRESS AT THIS TIME. PATIENT BREATHING IS UNLABORED WITH EQUAL RISE AND FALL OF THE CHEST. PATIENT IS ALERT AND ORIENTED X 1 ON ROOM AIR WITH A SPO2 99%. PATIENT IS DIVEHI SPEAKING ONLY. PATIENT IS COMPLIANT WITH MEDICATIONS, CONFUSED AT TIMES, ANXIOUS, PARANOID, EASILY IRRITABLE, AND NEEDS REDIRECTION. PATIENT DENIES SUICIDAL AND HOMICIDAL IDEATIONS AT THIS TIME. PATIENT ASSISTED WITH TURNING AND REPOSITIONING Q2HR AND PRN FOR COMFORT AND CIRCULATION. PATIENT HAS NO NEEDS AT THIS TIME. PATIENT EDUCATED ON THE USE OF THE CALL MCKEON. PATIENT BED SIDE RAILS UP X 2 FOR SAFETY. PATIENT BED IS LOCKED, LOW, WITH BED ALARM ON. WILL CONTINUE TO MONITOR THIS PATIENT Q15 MINUTES WITH THE HELP OF STAFF TO MAINTAIN SAFETY.
[2021-04-19 20:00] VITALS: BP 145/71
[2021-04-19] MEDS: TIMOLOL MAL/DORZOLAM HCL OPHTH 10 ML BOTTLE EACHEYE SCH (21:24)
--- NOTE | 2021-04-19 21:33 | NUR ---
GPS RN NOTE, PERFORMED ACCU CHECK ON PATIENT WITH A BLOOD SUGAR RESULT OF 144 GAVE 2 UNITS OF REGULAR INSULIN PER SLIDING SCALE. WILL CONTINUE TO MONITOR THIS PATIENT WITH THE HELP OF STAFF.
[2021-04-19] MEDS: INSULIN GLARGINE, 100 UNIT/ML CARTRIDGE SQ SCH (21:36)
--- NOTE | 2021-04-19 21:36 | NUR ---
GPS RN NOTE, PATIENT REFUSED LANTUS INSULIN COVERAGE AT THIS TIME. PATIENT BLOOD SUGAR IS 144. OFFERED THREE TIMES AND STILL PATIENT REFUSED. EDUCATED PATIENT ON RISKS AND BENEFITS OF TAKING AND REFUSING LANTUS INSULIN. WILL CONTINUE TO MONITOR THIS PATIENT WITH THE HELP OF STAFF.
[2021-04-20] MEDS: BLOOD SUGAR DIAGNOSTIC 1 EACH STRIP VI SCH ×4 (07:33→21:31)
[2021-04-20] MEDS: GLUCERNA SHAKE 237 ML CAN PO SCH ×2 (07:41→17:08)
[2021-04-20 08:00] VITALS: BP 132/66
[2021-04-20] MEDS: risperiDONE 0.25 MG TABLET PO SCH ×2 (08:00→17:09)
[2021-04-20] MEDS: DIVALPROEX SODIUM 125 MG CAP.SPRINK PO SCH ×3 (08:00→17:09)
[2021-04-20] MEDS: INSULIN REGULAR, HUMAN 100 UNIT/ML 3 ML VIAL SQ PRN ×2 (08:00→11:57)
[2021-04-20] MEDS: LEVOTHYROXINE SODIUM 75 MCG TABLET PO SCH (08:00)
[2021-04-20] MEDS: AMLODIPINE BESYLATE 2.5 MG TABLET PO SCH (08:01)
[2021-04-20] MEDS: LATANOPROST EYE DROP 0.005% 2.5 ML BOTTLE EACHEYE SCH (08:01)
[2021-04-20] MEDS: HYDROCORTISONE 1% CREAM 28.35 GM TUBE TP SCH ×2 (08:02→17:10)
[2021-04-20] MEDS: POLYVINYL ALCOHOL 15 ML BOTTLE OP SCH ×3 (08:03→17:10)
[2021-04-20] MEDS: SERTRALINE HCL 25 MG TABLET PO SCH (12:13)
--- NOTE | 2021-04-20 12:22 | NUR ---
GPS RN NOTES PATIENT REFUSED INSULIN INJECTION OF 3 UNITS FOR BLOOD SUGAR OF 180. DESPITE EDUCATION ON IMPORTANCE OF ADHERING TO MEDICATION TREATMENT, PATIENT STILL REFUSED. WILL CONTINUE TO MONITOR PATIENT.
[2021-04-20 16:00] VITALS: BP 132/67
[2021-04-20] MEDS: *INSULIN REGULAR(HUMULIN R)HUM 100 UNIT/ML VIAL SQ PRN (17:26)
--- NOTE | 2021-04-20 19:30 | NUR ---
GPS RN NOTE, RECEIVED PATIENT AWAKE AND IN BED, NO S/S OR COMPLAINTS OF PAIN AT THIS TIME. PATIENT IS DISPLAYING NO S/S OF APPARENT DISTRESS AT THIS TIME. PATIENT BREATHING IS UNLABORED WITH EQUAL RISE AND FALL OF THE CHEST. PATIENT IS ALERT AND ORIENTED X 1 ON ROOM AIR WITH A SPO2 97%. PATIENT IS BENINESE SPEAKING ONLY. PATIENT IS SELECTIVE WITH MEDICATIONS, CONFUSED AT TIMES, ANXIOUS, PARANOID, EASILY IRRITABLE, AND NEEDS REDIRECTION. PATIENT DENIES SUICIDAL AND HOMICIDAL IDEATIONS AT THIS TIME. PATIENT ASSISTED WITH TURNING AND REPOSITIONING Q2HR AND PRN FOR COMFORT AND CIRCULATION. PATIENT HAS NO NEEDS AT THIS TIME. PATIENT EDUCATED ON THE USE OF THE CALL MCKEON. PATIENT BED SIDE RAILS UP X 2 FOR SAFETY. PATIENT BED IS LOCKED, LOW, WITH BED ALARM ON. WILL CONTINUE TO MONITOR THIS PATIENT Q15 MINUTES WITH THE HELP OF STAFF TO MAINTAIN SAFETY.
[2021-04-20 20:58] VITALS: BP 129/64
[2021-04-20] MEDS: INSULIN GLARGINE, 100 UNIT/ML CARTRIDGE SQ SCH (21:30)
[2021-04-20] MEDS: TIMOLOL MAL/DORZOLAM HCL OPHTH 10 ML BOTTLE EACHEYE SCH (21:30)
--- NOTE | 2021-04-20 21:31 | NUR ---
GPS RN NOTE, PATIENT REFUSED ACCU-CHEK, LANTUS INSULIN 24 UNITS HS COVERAGE, AND COSOPT EYE DROPS 1 DROP EACH EYE HS AT THIS TIME. OFFERED THREE TIMES AND STILL PATIENT REFUSED STATING, "MY FINGERS HURT RIGHT NOW AND I WILL DO IT TOMORROW ". EDUCATED PATIENT ON RISKS AND BENEFITS OF TAKING AND REFUSING LANTUS INSULIN, DOING ACCU-CHEKS, AND HAVING COSOPT EYE DROPS ADMINISTERED. WILL CONTINUE TO MONITOR THIS PATIENT WITH THE HELP OF STAFF.
[2021-04-21 07:11] LABS: BASOPHILS # (AUTO) 0.1 K/uL (0.0-0.2); BASOPHILS % (AUTO) 1.2 % (0.0-2.0); EOSINOPHILS % (AUTO) 4.2 % (0.0-6.0); HEMATOCRIT 41 % (33-45); HEMOGLOBIN 13.6 g/dL (11.5-14.8); LYMPHOCYTES # (AUTO) 1.8 K/uL (0.8-4.8); LYMPHOCYTES % (AUTO) 31.6 % (20.0-44.0); MEAN CORPUSCULAR HGB CONC 33 g/dl (31.0-36.0); MEAN CORPUSCULAR VOLUME 92 fL (82-100); MONOCYTES # (AUTO) 0.5 K/uL (0.1-1.30); MONOCYTES % (AUTO) 8.3 % (2.0-12.0); NEUTROPHILS # (AUTO) 3.1 K/uL (1.8-8.9); NEUTROPHILS % (AUTO) 54.7 % (43.0-81.0); PLATELET COUNT (AUTO) 174 K/uL (150-450); RED BLOOD CELL COUNT(AUTO) 4.44 MIL/uL (4.0-5.2); WHITE BLOOD COUNT (AUTO) 5.7 K/uL (4.3-11.0)
[2021-04-21] MEDS: BLOOD SUGAR DIAGNOSTIC 1 EACH STRIP VI SCH ×4 (07:30→21:02)
--- NOTE | 2021-04-21 07:35 | NUR ---
GPS/RN PT REFUSED ACCUCHECK OFFERED X3
[2021-04-21 07:52] LABS: ALBUMIN 3.1 g/dL (3.4-5.0); BILIRUBIN,TOTAL 0.6 mg/dL (0.2-1.0); CALCIUM, SERUM 9.5 mg/dL (8.5-10.1); CREATININE 0.8 mg/dL (0.6-1.3); TOTAL PROTEIN, SERUM 6.3 g/dL (6.4-8.2)
[2021-04-21 08:00] VITALS: BP 128/66
[2021-04-21] MEDS: GLUCERNA SHAKE 237 ML CAN PO SCH ×2 (09:32→17:00)
[2021-04-21] MEDS: POLYVINYL ALCOHOL 15 ML BOTTLE OP SCH ×3 (09:32→17:00)
[2021-04-21] MEDS: HYDROCORTISONE 1% CREAM 28.35 GM TUBE TP SCH ×2 (09:33→17:00)
[2021-04-21] MEDS: LATANOPROST EYE DROP 0.005% 2.5 ML BOTTLE EACHEYE SCH (09:33)
[2021-04-21] MEDS: risperiDONE 0.25 MG TABLET PO SCH ×2 (09:36→17:00)
[2021-04-21] MEDS: AMLODIPINE BESYLATE 2.5 MG TABLET PO SCH (09:36)
[2021-04-21] MEDS: DIVALPROEX SODIUM 125 MG CAP.SPRINK PO SCH ×3 (09:36→17:00)
[2021-04-21] MEDS: LEVOTHYROXINE SODIUM 75 MCG TABLET PO SCH (09:36)
[2021-04-21] MEDS: SERTRALINE HCL 25 MG TABLET PO SCH (13:08)
[2021-04-21] MEDS: *INSULIN REGULAR(HUMULIN R)HUM 100 UNIT/ML VIAL SQ PRN (13:11)
[2021-04-21] MEDS: INSULIN REGULAR, HUMAN 100 UNIT/ML 3 ML VIAL SQ PRN (13:17)
--- NOTE | 2021-04-21 14:00 | NUR ---
GPS/RN PT REFUSED INSULIN COVERAGE FOR BS 298. OFFERED X3. WITH HELP OF GUATEMALAN SPEAKING HARRY ARAGON.
[2021-04-21 16:00] VITALS: BP 138/74
--- NOTE | 2021-04-21 17:08 | NUR ---
GPS/RN PT REFUSED MEDS SCHEDULED FOR 1700 AND ACCUCHECK. OFFERED X3 WITH HELP OF HEBREW SPEAKING MAHESH MCDONALD
[2021-04-21 20:00] VITALS: BP 125/66
[2021-04-21] MEDS: TIMOLOL MAL/DORZOLAM HCL OPHTH 10 ML BOTTLE EACHEYE SCH (21:02)
[2021-04-21] MEDS: INSULIN GLARGINE, 100 UNIT/ML CARTRIDGE SQ SCH (21:02)
[2021-04-21 21:11] VITALS: BP 125/66
--- NOTE | 2021-04-21 21:40 | NUR ---
GPS RN NOTE PATIENT REFUSED BLOOD SUGAR TO BE CHECKED AND COSOPT EYE DROPS SCHEDULED AT 2200. DESPITE OF EDUCATION PROVIDED REGARDING MEDICATION COMPLIANCE. PATIENT CONTINUES TO REFUSE X3. WILL CONTINUE TO MONITOR.
[2021-04-22] MEDS: LEVOTHYROXINE SODIUM 75 MCG TABLET PO SCH ×2 (07:00→08:15)
--- NOTE | 2021-04-22 07:29 | NUR ---
GPS RN NOTES: MEDICATION REFUSAL PATIENT REFUSED SCHEDULED MEDICATION LEVOTHYROXINE FOR 0700. EXPLAINED RISKS AND BENEFITS. PATIENT CONTINUED TO REFUSE X3. WILL ENDORSE TO DAY SHIFT NURSE FOR CONTINUITY OF CARE.
[2021-04-22] MEDS: *INSULIN REGULAR(HUMULIN R)HUM 100 UNIT/ML VIAL SQ PRN ×2 (07:54→12:20)
[2021-04-22] MEDS: BLOOD SUGAR DIAGNOSTIC 1 EACH STRIP VI SCH ×4 (07:58→22:29)
[2021-04-22 08:00] VITALS: BP 144/90
[2021-04-22] MEDS: GLUCERNA SHAKE 237 ML CAN PO SCH ×2 (08:13→16:15)
[2021-04-22] MEDS: POLYVINYL ALCOHOL 15 ML BOTTLE OP SCH ×3 (08:14→16:14)
[2021-04-22] MEDS: HYDROCORTISONE 1% CREAM 28.35 GM TUBE TP SCH ×2 (08:15→16:14)
[2021-04-22] MEDS: risperiDONE 0.25 MG TABLET PO SCH ×2 (08:15→16:14)
[2021-04-22] MEDS: DIVALPROEX SODIUM 125 MG CAP.SPRINK PO SCH ×3 (08:15→16:14)
[2021-04-22] MEDS: LATANOPROST EYE DROP 0.005% 2.5 ML BOTTLE EACHEYE SCH (08:17)
[2021-04-22] MEDS: AMLODIPINE BESYLATE 2.5 MG TABLET PO SCH (08:18)
[2021-04-22] MEDS: SERTRALINE HCL 25 MG TABLET PO SCH (12:10)
[2021-04-22] MEDS: INSULIN REGULAR, HUMAN 100 UNIT/ML 3 ML VIAL SQ PRN (12:22)
[2021-04-22 16:00] VITALS: BP 152/61
--- NOTE | 2021-04-22 17:37 | NUR ---
GPS NOTE- MED REFUSAL PT REFUSED BS CHECK AT 0445
[2021-04-22 21:02] VITALS: BP 139/57
[2021-04-22] MEDS: TIMOLOL MAL/DORZOLAM HCL OPHTH 10 ML BOTTLE EACHEYE SCH (22:00)
[2021-04-22] MEDS: INSULIN GLARGINE, 100 UNIT/ML CARTRIDGE SQ SCH (22:00)
--- NOTE | 2021-04-22 22:24 | NUR ---
GPS RN NOTES: PATIENT REFUSED 2200 LANTUS 24 UNITS AND TIMOLOL EYE DROP ORDERED. CALLED SALES PROGRAM MANAGER WHO CAME AND PLEADED WITH PATIENT BUT PATIENT STILL REFUSED.
--- NOTE | 2021-04-22 22:26 | NUR ---
GPS RN NOTES: PATIENT REFUSED WEEKLY SKIN ASSESSMENT. CALLED MASONRY INSTALLER WHO CAME AND PLEADED WITH PATIENT BUT PATIENT STILL REFUSED.
--- NOTE | 2021-04-23 06:38 | NUR ---
GPS RN NOTES: PATIENT REFUSED COVID SWAB FOR DC PURPOSES. WILL ENDORSE TO AM SHIFT.
[2021-04-23] MEDS: BLOOD SUGAR DIAGNOSTIC 1 EACH STRIP VI SCH ×3 (07:30→11:54)
--- NOTE | 2021-04-23 07:52 | NUR ---
PT REFUSES ACCU CHECK. PT REFUSES COVID TEST.
[2021-04-23 08:00] VITALS: BP 141/71
[2021-04-23] MEDS: GLUCERNA SHAKE 237 ML CAN PO SCH (08:01)
[2021-04-23 08:07] VITALS: BP 141/71
[2021-04-23] MEDS: AMLODIPINE BESYLATE 2.5 MG TABLET PO SCH (08:07)
[2021-04-23] MEDS: risperiDONE 0.25 MG TABLET PO SCH (08:08)
[2021-04-23] MEDS: DIVALPROEX SODIUM 125 MG CAP.SPRINK PO SCH ×2 (08:08→12:11)
[2021-04-23] MEDS: POLYVINYL ALCOHOL 15 ML BOTTLE OP SCH ×2 (08:17→12:07)
[2021-04-23] MEDS: LATANOPROST EYE DROP 0.005% 2.5 ML BOTTLE EACHEYE SCH (08:17)
[2021-04-23] MEDS: HYDROCORTISONE 1% CREAM 28.35 GM TUBE TP SCH (08:17)
--- NOTE | 2021-04-23 08:18 | NUR ---
SW Discharge Note: Patient will be discharged to [facility] facility [facility] [address] [facility], [place] [address]; ). Please arrange transportation at 1PM. Baker Chef spoke with Juan rn psychiatric at [facility]; [phone], who stated patient will be accepted today. Patients daughter Nhung ([phone]) is aware and agreeable of dc. Patient is alert and oriented x1and is unable to plan for self-care. Patient denies any suicidal or homicidal ideations. Patient is aware and agreeable with discharge plans. Patient will continue to follow-up with (psychiatrist) Dr. Flores [address] [facility] [address], [place] [address]; ([phone]) and (ultra sound technician) Dr. Keane [address] [facility] [address], [place] [address]; ([phone]). Patient presents with euthymic and congruent mood.
[2021-04-23] MEDS: INSULIN REGULAR, HUMAN 100 UNIT/ML 3 ML VIAL SQ PRN ×2 (08:20→11:53)
[2021-04-23] MEDS: SERTRALINE HCL 25 MG TABLET PO SCH (12:11)
--- NOTE | 2021-04-23 13:25 | NUR ---
Patient has been discharged to senior care facility [facility], [place] [address]; ). Pt left unit at 1315 by tito via ambulance service. Patients daughter Nhung ([phone]) is aware and agreeable of dc. Patient is alert and oriented x1and is unable to plan for self-care. Patient denies any suicidal or homicidal ideation at this time. Pt denies a/v hallucinations at this time. Patient is aware and agreeable with discharge plans. Patient will continue to follow-up with (psychiatrist) Dr. Flores [address] [facility] [address], [place] [address]; ([phone]) and (baseball umpire for little league) Dr. Keane [address] [facility] [address], [place] [address]; ([phone]). Patient presents with euthymic and congruent mood. Exit care documents signed, exit care education and pertinent documents signed along with medication reconciliation for medical and psych meds in discharge packet. All valuables signed and returned. Pt refused pictures. No acute distress noted.
== END 2021-04-23 13:15 | DRG 885 ==
LOC: ER 19:19 → GPS 04-10 00:08
PROVIDERS: ADMIT Psychiatry & Neurology Psychosomatic Medicine; ATTEND Nurse Practitioner Family
DX: F25.1 Schizoaffective disorder, depressive type (principal); E11.65 Type 2 diabetes mellitus with hyperglycemia; G93.41 Metabolic encephalopathy; E44.1 Mild protein-calorie malnutrition; F03.91 Unspecified dementia, unspecified severity, with behavioral disturbance; N39.0 Urinary tract infection, site not specified; Z20.822 Contact with and (suspected) exposure to COVID-19; E03.9 Hypothyroidism, unspecified; E88.09 Other disorders of plasma-protein metabolism, not elsewhere classified; I10 Essential (primary) hypertension; B96.89 Other specified bacterial agents as the cause of diseases classified elsewhere; Z53.20 Procedure and treatment not carried out because of patient's decision for unspecified reasons; Z91.81 History of falling; M62.81 Muscle weakness (generalized); R21 Rash and other nonspecific skin eruption
CPT/HCPCS: 36415; 80048-TC; 80053-TC; 80061-TC; 80076-TC; 80164-TC; 81001; 82962-TC; 84443-TC; 85025-TC; 87081-TC; 87086-TC; C9803; G0480; J1815; J2060